=== PATIENT | female | born 1985 | race Caucasian/White ===

== ENCOUNTER 2017-06-11 18:06 | Emergency (ER) | payer MEDICARE, SELFPAY ==
--- NOTE | 2017-06-11 19:53 | RAD ---
PA VIEW OF THE CHEST WITH THREE VIEWS OF THE LEFT CHEST WALL. 06/11/17 INDICATION: Fall with left rib injury. COMPARISON: None. FINDINGS: The lungs are clear. The cardiomediastinal silhouette is normal. No pneumothorax is demonstrated. No definite displaced left sided rib fracture is evident. IMPRESSION: No displaced left sided rib fracture. POS: [facility]
== END 2017-06-11 19:17 | disposition home or self-care (01) ==
LOC: MADERS 18:06
DX: S20.212A Contusion of left front wall of thorax, initial encounter (principal); F17.210 Nicotine dependence, cigarettes, uncomplicated; W18.09XA Striking against other object with subsequent fall, initial encounter

== ENCOUNTER 2018-04-20 10:00 | Outpatient (CLI) | payer MEDICAID, MEDICARE ==
[2018-04-21 10:38] LABS: HCG, Total Quant Less than 1.20 mIU/mL (See Ranges)
[2018-04-21 17:41] LABS: Hep B Surf Ag Non-Reactive S/CO (NonReactive); Hep C IgG Ab Non-Reactive (NonReactive)
[2018-04-21 17:42] LABS: Hep A IgM AB Non-Reactive (NonReactive); Hep A IgM S/CO 0.14 S/CO (0-0.79)
[2018-04-21 17:43] LABS: Hepatitis B Core IGM Abs Non-Reactive (NonReactive)
[2018-04-21 17:44] LABS: HIV (1/2) Antibody/Antigen Non-Reactive (NonReactive); HIV 1/2 INDEX 0.16 S/CO (<1.00)
== END 2018-04-20 10:01 | disposition home or self-care (01) ==
LOC: MADLABBHPM 10:01
PROVIDERS: ATTEND Family Medicine
DX: F16.10 Hallucinogen abuse, uncomplicated (principal)
CPT/HCPCS: 36415; 80074; 84702; 87389